=== PATIENT | female | born 1995 | race Caucasian/White ===

== ENCOUNTER 2018-03-11 14:13 | Emergency (ER) | payer OTHER ==
[~2018-03-11] VITALS: Ht 152.4 cm; Wt 47.7 kg
[2018-03-11 14:17] VITALS: TEMP 99.9
[2018-03-11] MEDS ORDERED: SKYLA13.5 MG IY (14:20)
[2018-03-11 15:43] LABS: COLLECTION METHOD CLEAN CATCH
[2018-03-11 15:49] LABS: MUCOUS Present /lpf; PH 7 (5-8); SQUAMOUS EPITHELIAL 0-2 /hpf; URINE APPEARANCE Clear; URINE BACTERIA None Seen /hpf; URINE BILIRUBIN Negative (NEGATIVE); URINE BLOOD Negative (NEGATIVE); URINE COLOR Yellow; URINE GLUCOSE Negative (NEGATIVE); URINE KETONE Negative (NEGATIVE); URINE LEUKOCYTE ESTERASE Negative (NEGATIVE); URINE NITRATE Negative (NEGATIVE); URINE PROTEIN(semi-quant) Negative (NEGATIVE); URINE UROBILINOGEN Negative (NEGATIVE)
[2018-03-11 15:56] LABS: BASO % 0.5 % (0.0-2.0); EOS # 0.1 (0.0-0.7); EOS % 1.4 % (0-4.0); GRAN # 4.7 (1.4-6.5); GRAN % 64.1 % (42.2-75.2); HEMOGLOBIN 12.2 g/dl (12.0-15.0); LYMPH # 1.8 (1.2-3.4); LYMPH % 24.6 % (20.0-51.0); MEAN CELL VOLUME 92 fl (80.0-95.0); MEAN CORPUSCULAR HEMOGLOBIN 32 pg (26.0-32.0); MEAN CORPUSCULAR HGB CONC 36 g/dl (33.0-37.0); MEAN PLATELET VOLUME 8.9 fl (7.4-10.4); MONO # 0.7 (0.1-0.6); PLATELET COUNT 322 K/mm3 (130-400); RED BLOOD COUNT 3.76 M/mm3 (4.10-5.30); REDCELL DISTRIBUTION WIDTH-CV 12.1 % (11.5-14.5)
[2018-03-11 16:00] LABS: HEMATOCRIT 34.4 % (35.0-45.0)
[2018-03-11 16:05] LABS: ALBUMIN 3.8 gm/dL (3.5-5.0); BILIRUBIN,TOTAL 0.3 mg/dL (0.0-1.0); CALCIUM 8.3 mg/dL (8.4-10.2); CREATININE, serum 0.54 mg/dL (0.52-1.25); POTASSIUM 3.7 mmol/L (3.4-5.0); TOTAL PROTEIN 6.6 gm/dL (6.4-8.2)
[2018-03-11 16:30] VITALS: BP 111/70; PULSE 82
== END 2018-03-11 16:32 | disposition home or self-care (01) ==
LOC: COL.ER 14:13
PROVIDERS: Family Medicine
DX: T83.84XA Pain due to genitourinary prosthetic devices, implants and grafts, initial encounter (principal); N93.9 Abnormal uterine and vaginal bleeding, unspecified

== ENCOUNTER → 2018-09-18 | Outpatient (CLI) | payer OTHER ==
[~2018-09-18] MED LIST: SKYLA13.5 MG IY
[2018-09-18 20:19] LABS: BASO # 0.1 (0.0-0.2); BASO % 0.9 % (0.0-2.0); EOS # 0.3 (0.0-0.7); EOS % 3.4 % (0-4.0); GRAN # 4.6 (1.4-6.5); GRAN % 56.9 % (42.2-75.2); HEMOGLOBIN 12.8 g/dl (12.5-16.0); LYMPH # 2.5 (1.2-3.4); LYMPH % 31.6 % (20.0-51.0); MEAN CELL VOLUME 90 fl (80.0-100.0); MEAN CORPUSCULAR HEMOGLOBIN 32 pg (27.0-31.0); MEAN CORPUSCULAR HGB CONC 36 g/dl (33.0-37.0); MEAN PLATELET VOLUME 9.4 fl (7.4-10.4); MONO # 0.6 (0.1-0.6); MONO % 6.8 % (1.7-9.3); PLATELET COUNT 325 K/mm3 (130-400); RED BLOOD COUNT 3.98 M/mm3 (4.10-5.30); REDCELL DISTRIBUTION WIDTH-CV 12.6 % (11.5-14.5)
[2018-09-18 20:21] LABS: HEMATOCRIT 35.7 % (37.0-47.0)
[2018-09-18 20:26] LABS: ALBUMIN 4.2 gm/dL (3.5-5.0); BILIRUBIN,TOTAL 0.2 mg/dL (0.0-1.0); CALCIUM 9.3 mg/dL (8.4-10.2); CHOLESTEROL RISK RATIO 2.4; CREATININE, serum 0.52 mg/dL (0.52-1.25); POTASSIUM 4.1 mmol/L (3.4-5.0); TOTAL PROTEIN 7.1 gm/dL (6.4-8.2)
[2018-09-18 20:56] LABS: THYROID STIMULATING HORMONE 1.46 uIU/mL (0.465-4.680)
== END ==
LOC: ZCOL.LAB 19:37
PROVIDERS: Nurse Practitioner Family
DX: R53.83 Other fatigue (principal)

== ENCOUNTER 2018-09-25 22:00 | Emergency (ER) | payer SELFPAY ==
[~2018-09-25] VITALS: Ht 152.4 cm; Wt 48.6 kg
[2018-09-25 22:05] VITALS: TEMP 97.5
[2018-09-25 22:26] LABS: BASO # 0.1 (0.0-0.2); BASO % 0.4 % (0.0-2.0); GRAN # 14.8 (1.4-6.5); GRAN % 80.6 % (42.2-75.2); HEMATOCRIT 39.7 % (37.0-47.0); HEMOGLOBIN 14.1 g/dl (12.5-16.0); LYMPH # 2.6 (1.2-3.4); LYMPH % 13.9 % (20.0-51.0); MEAN CELL VOLUME 91 fl (80.0-100.0); MEAN CORPUSCULAR HEMOGLOBIN 32 pg (27.0-31.0); MEAN CORPUSCULAR HGB CONC 36 g/dl (33.0-37.0); MEAN PLATELET VOLUME 8.9 fl (7.4-10.4); MONO # 0.9 (0.1-0.6); MONO % 4.8 % (1.7-9.3); PLATELET COUNT 450 K/mm3 (130-400); RED BLOOD COUNT 4.38 M/mm3 (4.10-5.30); REDCELL DISTRIBUTION WIDTH-CV 12.6 % (11.5-14.5)
[2018-09-25 22:36] LABS: BILIRUBIN,TOTAL 0.5 mg/dL (0.0-1.0); CALCIUM 9.9 mg/dL (8.4-10.2); CREATININE, serum 0.67 mg/dL (0.52-1.25); POTASSIUM 3.7 mmol/L (3.4-5.0); TOTAL PROTEIN 8.9 gm/dL (6.4-8.2)
[2018-09-25 23:15] LABS: COLLECTION METHOD CLEAN CATCH
[2018-09-25 23:24] LABS: MUCOUS Present /lpf; PH 8 (5-8); SQUAMOUS EPITHELIAL 0-2 /hpf; URINE APPEARANCE Clear; URINE BACTERIA None Seen /hpf; URINE BILIRUBIN Negative (NEGATIVE); URINE BLOOD 1+ (NEGATIVE); URINE COLOR Yellow; URINE GLUCOSE Negative (NEGATIVE); URINE KETONE 2+ (NEGATIVE); URINE LEUKOCYTE ESTERASE Negative (NEGATIVE); URINE NITRATE Negative (NEGATIVE); URINE PROTEIN(semi-quant) 2+ (NEGATIVE); URINE UROBILINOGEN Negative (NEGATIVE)
[2018-09-26] MEDS ORDERED: CIPRO 500MG TA500 MG PO (01:15)
[2018-09-26] MEDS ORDERED: FLAGYL500 MG PO (01:15)
[2018-09-26] MEDS ORDERED: PHENERGAN 25 TA25 MG PO (01:16)
[2018-09-26] MEDS ORDERED: ZOFRAN ODT4 MG PO (01:16)
[2018-09-26 01:39] VITALS: BP 106/61; PULSE 100
== END 2018-09-26 01:45 | disposition home or self-care (01) ==
LOC: COL.ER 22:00
PROVIDERS: Emergency Medicine
DX: K52.9 Noninfective gastroenteritis and colitis, unspecified (principal); Z87.42 Personal history of other diseases of the female genital tract
CPT/HCPCS: J1200; J2765; J7030; Q9967